=== PATIENT | female | born 1960 ===

== ENCOUNTER 2018-01-12 23:14 | Observation (INO) | payer BC ==
[2018-01-13] MEDS ORDERED: Sodium Chloride 0.9% 1,000 ML IV STA ×3 (00:01→06:25)
[2018-01-13 00:18] LABS: BASO # 0.1 K/uL (0.0-0.2); BASO % 0.5 % (0.0-2.0); EOS # 0.1 K/uL (0.0-0.7); EOS % 1.2 % (0.0-4.0); HEMOGLOBIN 14.3 g/dL (12.0-16.0); LYMPH % 38.3 % (20.0-40.0); MEAN CELL VOLUME 88.4 fl (81.0-99.0); MEAN CORPUSCULAR HEMOGLOBIN 30.5 pg (27.0-31.0); MEAN CORPUSCULAR HGB CONC 34.5 g/dL (33.0-37.0); MEAN PLATELET VOLUME 7.4 fl (7.2-11.7); MONO # 0.4 K/uL (0.0-0.8); MONO % 4.3 % (0.0-10.0); NEUT # 5.8 K/uL (1.8-7.0); NEUT % 55.7 % (50.0-75.0); NRBC % 0.1 % (0.0-0.0); RBC 4.68 Mil/uL (3.80-5.20); RED CELL DISTRIBUTION WIDTH 13.1 % (11.5-14.5); WHITE BLOOD COUNT 10.4 K/uL (4.8-10.8)
[2018-01-13 00:27] LABS: ALB/GLOB RATIO 1.2 (1.0-2.1); ALBUMIN 4.6 g/dL (3.5-5.0); ALT/SGPT 21 U/L (9-52); AST/SGOT 50 U/L (14-36); BLOOD UREA NITROGEN 15 mg/dl (7-17); CALCIUM 9.1 mg/dL (8.4-10.2); GFR AFRICAN-AMERICAN > 60; GFR NON-AFRICAN AMERICAN > 60; LIPASE 106 U/L (23-300)
--- NOTE | 2018-01-13 01:59 | ED PDOC ---
HPI: Abdomen Time Seen by Provider: 01/12/18 23:43 Chief Complaint (Nursing): GI Problem Chief Complaint (Provider): Vomiting and Dizziness History Per: Patient History/Exam Limitations: no limitations Onset/Duration Of Symptoms: Hrs (2pm), Worse Since (dizziness ) Associated Symptoms: Vomiting (blood). denies: Fever Additional Complaint(s): Julianne Bray, a 57 y/o female presents to the ED complaining of vomiting and dizziness. Reports of nausea and had one episode of vomiting around 2pm with small amounts of blood. Also had abdominal cramps and dizziness afterwards. She felt worse with movement and felt like the room was spinning. She took medication, but does not remember the name. Denies fever, cough, or shortness of breath. PMD: Provider RAZ Past Medical History Reviewed: Historical Data, Nursing Documentation, Vital Signs Vital Signs: Last Vital Signs Temp 98.3 F 01/13/18 15:40 Pulse 68 01/13/18 15:40 Resp 20 01/13/18 15:40 BP 147/75 01/13/18 15:40 Pulse Ox 100 01/13/18 16:32 - Medical History PMH: No Chronic Diseases - Surgical History Surgical History: No Surg Hx - Family History Family History: States: Unknown Family Hx - Social History Current smoker - smoking cessation education provided: No Alcohol: None Drugs: Denies - Home Medications Home Medications: Ambulatory Orders Medication Instructions Recorded Cyanocobalamin [Vitamin B12] 500 mcg PO DAILY 01/13/18 Ibuprofen [Motrin Tab] 600 mg PO Q8H PRN 01/13/18 Omeprazole [Omeprazole] 20 mg PO DAILY 01/13/18 Promethazine/Codeine 5 ml PO Q4H PRN 01/13/18 [Phenergan/Codeine Oral Syrup] - Allergies Allergies/Adverse Reactions: Allergies Allergy/AdvReac Type Severity Reaction Status Date / Time No Known Allergies Allergy Verified 01/12/18 23:18 Review of Systems ROS Statement: Except As Marked, All Systems Reviewed And Found Negative Constitutional: Negative for: Fever Respiratory: Negative for: Cough, Shortness of Breath Gastrointestinal: Positive for: Nausea, Vomiting (small amounts of blood), Abdominal Pain Neurological: Positive for: Dizziness Physical Exam - Reviewed Nursing Documentation Reviewed: Yes Vital Signs Reviewed: Yes - Physical Exam Appears: Positive for: Non-toxic, No Acute Distress Head Exam: Positive for: ATRAUMATIC, NORMAL INSPECTION, NORMOCEPHALIC Skin: Positive for: Warm, Dry, Pallor Eye Exam: Positive for: EOMI, Normal appearance, PERRL ENT: Positive for: Normal ENT Inspection Neck: Positive for: Normal, Painless ROM, Supple. Negative for: Decreased ROM Cardiovascular/Chest: Positive for: Tachycardia Respiratory: Positive for: Normal Breath Sounds. Negative for: Accessory Muscle Use, Wheezing, Respiratory Distress Gastrointestinal/Abdominal: Positive for: Normal Exam, Bowel Sounds, Soft. Negative for: Tenderness Back: Positive for: Normal Inspection. Negative for: L CVA Tenderness, R CVA Tenderness Extremity: Positive for: Normal ROM. Negative for: Tenderness, Pedal Edema, Deformity Neurologic/Psych: Positive for: Alert, Oriented (x3), Gait - Laboratory Results Result Diagrams: 01/13/18 00:15 01/13/18 00:15 - ECG O2 Sat by Pulse Oximetry: 100 (RA) Pulse Ox Interpretation: Normal Medical Decision Making Medical Decision Making: Time: 23:29 Initial Impression: 57 y/o female with vertiginous dizziness and developed diarrhea in the ED. Initial Plan: --EKG --CMP --Lipase --ED Urine dipstick --CBC --Antivert 25mg --Bentyl 20mg --Normal Saline 1000 mls/hr --Zofran 4mg --Influenza A B --Reevaluation Persistent dizziness after two dosages of Meclizine. Patient was given IV Benadryl and CT of head. Patient to be signed out to Dr. Perkins pending labs and reevaluation. Documented by Turner Marin acting as a scribe for Srinivasan Del Toro MD. All medical record entries made by the Scribe were at my direction and personally dictated by me. I have reviewed the chart and agree that the record accurately reflects my personal performance of the history, physical exam, medical decision making, and the department course for this patient. I have also personally directed, reviewed, and agree with the discharge instructions and disposition. Disposition - Clinical Impression Clinical Impression: Vertigo, Gastroenteritis - Disposition Disposition: Transfer of Care Disposition Time: 07:00 Condition: FAIR Patient Signed Over To: Malcom Perkins
[2018-01-13 02:12] LABS: URINE BACTERIA RARE (<OCC); URINE BILIRUBIN NEGATIVE (NEGATIVE); URINE BLOOD SMALL (NEGATIVE); URINE CLARITY CLEAR (Clear); URINE COLOR STRAW (YELLOW); URINE GLUCOSE (UA) >=500 mg/dL (Normal); URINE LEUKOCYTE ESTERASE NEG Leu/uL (Negative); URINE NITRATE NEGATIVE (NEGATIVE); URINE PROTEIN NEGATIVE (NEGATIVE); URINE UROBILINOGEN 0.2-1.0 mg/dL (0.2-1.0)
[2018-01-13] MEDS ORDERED: DiphenhydrAMINE 50 mg/ml Inj IV STA (06:20)
[2018-01-13] MEDS ORDERED: DiphenhydrAMINE 50 mg/ml Inj ONE (06:30)
--- NOTE | 2018-01-13 08:13 | CT ---
PROCEDURE: CT HEAD WITHOUT CONTRAST. HISTORY: intractable dizziness COMPARISON: None available. TECHNIQUE: Axial computed tomography images were obtained through the head/brain without intravenous contrast. Radiation dose: Total exam DLP = 732.54 mGy-cm. This CT exam was performed using one or more of the following dose reduction techniques: Automated exposure control, adjustment of the mA and/or kV according to patient size, and/or use of iterative reconstruction technique. FINDINGS: HEMORRHAGE: No intracranial hemorrhage. BRAIN: Franklin-white matter differentiation is preserved. There is no mass, mass effect or abnormal extra-axial fluid collection. VENTRICLES: The ventricles are normal in size, shape and configuration. There is asymmetry in the size of the lateral ventricles, left larger than right, an anatomic variant. CALVARIUM: The skull base and calvarium are normal. PARANASAL SINUSES: Predominantly clear. MASTOID AIR CELLS: Predominantly clear. OTHER FINDINGS: None. IMPRESSION: No acute intracranial abnormality.
--- NOTE | 2018-01-13 12:28 | ED PDOC ---
- Laboratory Results Result Diagrams: 01/13/18 00:15 01/13/18 00:15 - ECG O2 Sat by Pulse Oximetry: 99 Disposition - Clinical Impression Clinical Impression: Gastroenteritis, Vertigo - POA Present On Arrival: None - Disposition Disposition: Hospitalized as Observation Patient Disposition Time: 12:27 Condition: FAIR Prescriptions: Dicyclomine [Bentyl] 20 mg PO Q12 PRN #20 tab PRN Reason: diarrhea/abdominal pain Meclizine [Antivert] 25 mg PO Q6 PRN #12 tab PRN Reason: Dizziness Ondansetron ODT [Zofran ODT] 4 mg PO Q6H PRN #16 odt PRN Reason: Nausea/Vomiting Instructions: Vertigo (a Type of Dizziness), Viral Gastroenteritis Forms: [facility] ([place] Citizen) Print Language: DANISH
--- NOTE | 2018-01-13 22:56 | CARD ---
APPROVED REPORT EKG Measurement Heart [id number] <Conclusion> Normal sinus rhythm Normal ECG
[2018-01-14 00:58] VITALS: RESP 18
[2018-01-14 08:01] VITALS: BP 106/65; PULSE 61; TEMP 97.1; O2SAT 99
[2018-01-14 08:37] LABS: BASO % 0.6 % (0.0-2.0); EOS # 0.1 K/uL (0.0-0.7); EOS % 1.9 % (0.0-4.0); HEMOGLOBIN 12.9 g/dL (12.0-16.0); LYMPH # 3.2 K/uL (1.0-4.3); LYMPH % 49.3 % (20.0-40.0); MEAN CELL VOLUME 89.5 fl (81.0-99.0); MEAN CORPUSCULAR HEMOGLOBIN 30.5 pg (27.0-31.0); MEAN CORPUSCULAR HGB CONC 34.1 g/dL (33.0-37.0); MEAN PLATELET VOLUME 7.5 fl (7.2-11.7); MONO # 0.4 K/uL (0.0-0.8); MONO % 6.2 % (0.0-10.0); NEUT # 2.7 K/uL (1.8-7.0); NRBC % 0.1 % (0.0-0.0); RBC 4.22 Mil/uL (3.80-5.20); RED CELL DISTRIBUTION WIDTH 13.1 % (11.5-14.5); WHITE BLOOD COUNT 6.5 K/uL (4.8-10.8)
[2018-01-14 08:43] LABS: ALB/GLOB RATIO 1.2 (1.0-2.1); ALBUMIN 3.5 g/dL (3.5-5.0); ALT/SGPT 30 U/L (9-52); AST/SGOT 23 U/L (14-36); BLOOD UREA NITROGEN 9 mg/dl (7-17); CALCIUM 8.9 mg/dL (8.4-10.2); GFR AFRICAN-AMERICAN > 60; GFR NON-AFRICAN AMERICAN > 60; HDL CHOLESTEROL 28 MG/DL (30-70)
[2018-01-14 08:44] LABS: LDL CHOLESTEROL 157 mg/dL (0-129)
--- NOTE | 2018-01-14 10:11 | CP.PCM.CON ---
History of Present Illness - History of Present Illness History of Present Illness: 57 yr old woman who started to have vomiting and diarrhea yesterday after eating some [place] food, prepared at home. She had some mild, self remitting dizziness that has since resolved. THere was no weakness, no aphasia, no dysarthria, no headache, and she is doing well today. She says that she has no history of stroke, cardiac disease, dm, or hypertension. PMH/PSH: non contributory, no surgeries. Fh/SH: no smoking, no tobacco, has 2 children. All: nkda. on exam: normal neurological exam no aphasia, no dysmetria, cranial nerves intact. Past Patient History - Past Social History Alcohol: None Drugs: Denies - CARDIAC Hx Cardiac Disorders: No - PULMONARY Hx Respiratory Disorders: No - NEUROLOGICAL Hx Neurological Disorder: No - HEENT Hx HEENT Problems: No - RENAL Hx Chronic Kidney Disease: No - ENDOCRINE/METABOLIC Hx Endocrine Disorders: No - HEMATOLOGICAL/ONCOLOGICAL Hx Blood Disorders: No - INTEGUMENTARY Hx Dermatological Problems: No - MUSCULOSKELETAL/RHEUMATOLOGICAL Hx Musculoskeletal Disorders: No Hx Falls: No - GASTROINTESTINAL Hx Gastroesophageal Reflux: Yes - GENITOURINARY/GYNECOLOGICAL Hx Genitourinary Disorders: No - PSYCHIATRIC Hx Psychophysiologic Disorder: No Hx Substance Use: No Meds Allergies/Adverse Reactions: Allergies Allergy/AdvReac Type Severity Reaction Status Date / Time No Known Allergies Allergy Verified 01/12/18 23:18 - Medications Medications: Current Medications Meclizine HCl (Antivert) 25 mg PO TID [facility] Last Admin: 01/14/18 09:23 Dose: 25 mg Ondansetron HCl (Zofran Inj) 4 mg IVP Q4 PRN PRN Reason: Nausea/Vomiting Pantoprazole Sodium (Protonix Inj) 40 mg IVP DAILY [facility] Last Admin: 01/14/18 09:23 Dose: 40 mg Results - Vital Signs Recent Vital Signs: Last Vital Signs Temp 97.1 F L 01/14/18 08:01 Pulse 61 01/14/18 08:01 Resp 18 01/14/18 08:01 BP 106/65 01/14/18 08:01 Pulse Ox 99 01/14/18 08:01 - Labs Result Diagrams: 01/14/18 07:09 01/14/18 07:09 Labs: Laboratory Results - last 24 hr 01/14/18 01/14/18 07:09 07:09 WBC 6.5 RBC 4.22 Hgb 12.9 Hct 37.7 MCV 89.5 MCH 30.5 MCHC 34.1 RDW 13.1 Plt Count 269 MPV 7.5 Neut % (Auto) 42.0 L Lymph % (Auto) 49.3 H Dickinson % (Auto) 6.2 Eos % (Auto) 1.9 Baso % (Auto) 0.6 Neut # (Auto) 2.7 Lymph # (Auto) 3.2 Dickinson # (Auto) 0.4 Eos # (Auto) 0.1 Baso # (Auto) 0.0 Sodium 145 Potassium 3.7 Chloride 107 Carbon Dioxide 27 Anion Gap 15 BUN 9 Creatinine 0.8 Est GFR ( Amer) > 60 Est GFR (Non-Af Amer) > 60 Random Glucose 94 Calcium 8.9 Total Bilirubin 0.6 AST 23 ALT 30 Alkaline Phosphatase 55 Total Protein 6.4 Albumin 3.5 D Globulin 2.9 Albumin/Globulin Ratio 1.2 Triglycerides 206 H Cholesterol 226 H LDL Cholesterol Direct 157 H HDL Cholesterol 28 L Thyroxine (T4) 8.40 TSH 3rd Generation 1.32 Assessment & Plan - Assessment and Plan (Free Text) Assessment: 57 yr old woman with most likley underlying gastritis, who has a normal neurological exam. No further workup required.
--- NOTE | 2018-01-14 13:35 | CP.PCM.HP ---
History of Present Illness - History of Present Illness History of Present Illness: CC: Abdominal pain/vomiting. 57 y/o F, No chronic PMHx, brought to ER [facility], [place] due to intermittent abdominal pain RUQ, epigastric, mild intensity 3:10 associated to nausea and one episode of vomiting with small amount of blood about 2 pm on day [employer], Pt with no relief came to hospital for evaluation and Tx. Worsening symptoms: Cramps and dizziness after episode. As per PT, he had some home made [place] food day [employer] and after she start having nausea/vomiting. Aggravated factor: Food. Pt denied: Fever, chills, diarrhea, weakness, headache, CP, palpitations, SOB, urinary symptoms, sick contact, recent travel out of [place]. Head CT: No acute intracranial abnormality. EKG: Normal sinus rhythm Present on Admission - Present on Admission Any Indicators Present on Admission: No Review of Systems - Constitutional Constitutional: Other (negative) - EENT Eyes: Other (negative) Ears: Other (negative) Nose/Mouth/Throat: Other (negative) - Cardiovascular Cardiovascular: Other (negative) - Respiratory Respiratory: Other (negative) - Gastrointestinal Gastrointestinal: Abdominal Pain, Nausea, Vomiting - Genitourinary Genitourinary: Other (negative) - Musculoskeletal Musculoskeletal: Other (negative) - Integumentary Integumentary: Other (negative) - Neurological Neurological: Vertigo - Psychiatric Psychiatric: Other (negative) - Endocrine Endocrine: Other (negative) - Hematologic/Lymphatic Hematologic: Other (negative) Past Patient History - Past Medical History & Family History Pertinent Family History: Unknown - Past Social History Smoking Status: Never Smoked Alcohol: None Drugs: Denies Home Situation {Lives}: With Family - CARDIAC Hx Cardiac Disorders: No - PULMONARY Hx Respiratory Disorders: No - NEUROLOGICAL Hx Neurological Disorder: No - HEENT Hx HEENT Problems: No - RENAL Hx Chronic Kidney Disease: No - ENDOCRINE/METABOLIC Hx Endocrine Disorders: No - HEMATOLOGICAL/ONCOLOGICAL Hx Blood Disorders: No - INTEGUMENTARY Hx Dermatological Problems: No - MUSCULOSKELETAL/RHEUMATOLOGICAL Hx Musculoskeletal Disorders: No Hx Falls: No - GASTROINTESTINAL Hx Gastrointestinal Disorders: Yes Hx Gastroesophageal Reflux: Yes - GENITOURINARY/GYNECOLOGICAL Hx Genitourinary Disorders: No - PSYCHIATRIC Hx Psychophysiologic Disorder: No Hx Substance Use: No - ANESTHESIA Hx Anesthesia: No Meds Allergies/Adverse Reactions: Allergies Allergy/AdvReac Type Severity Reaction Status Date / Time No Known Allergies Allergy Verified 01/12/18 23:18 Physical Exam - Constitutional Appears: No Acute Distress - Head Exam Head Exam: NORMAL INSPECTION - Eye Exam Eye Exam: PERRL - ENT Exam ENT Exam: Normal Exam - Neck Exam Neck exam: Positive for: Normal Inspection - Respiratory Exam Respiratory Exam: NORMAL BREATHING PATTERN - Cardiovascular Exam Cardiovascular Exam: REGULAR RHYTHM - GI/Abdominal Exam GI & Abdominal Exam: Normal Bowel Sounds, Soft. absent: Distended, Tenderness - Extremities Exam Extremities exam: Positive for: normal inspection - Back Exam Back exam: NORMAL INSPECTION - Neurological Exam Neurological exam: Alert, Oriented x3 - Psychiatric Exam Psychiatric exam: Normal Mood - Skin Skin Exam: Warm Results - Vital Signs Recent Vital Signs: Last Vital Signs Temp 97.1 F L 01/14/18 08:01 Pulse 61 01/14/18 08:01 Resp 18 01/14/18 08:01 BP 106/65 01/14/18 08:01 Pulse Ox 99 01/14/18 08:01 reviewed J.P. - Labs Result Diagrams: 01/14/18 07:09 01/14/18 07:09 Labs: Laboratory Results - last 24 hr 01/14/18 01/14/18 07:09 07:09 WBC 6.5 RBC 4.22 Hgb 12.9 Hct 37.7 MCV 89.5 MCH 30.5 MCHC 34.1 RDW 13.1 Plt Count 269 MPV 7.5 Neut % (Auto) 42.0 L Lymph % (Auto) 49.3 H [place] % (Auto) 6.2 Eos % (Auto) 1.9 Baso % (Auto) 0.6 Neut # (Auto) 2.7 Lymph # (Auto) 3.2 [place] # (Auto) 0.4 Eos # (Auto) 0.1 Baso # (Auto) 0.0 Sodium 145 Potassium 3.7 Chloride 107 Carbon Dioxide 27 Anion Gap 15 BUN 9 Creatinine 0.8 Est GFR ( Amer) > 60 Est GFR (Non-Af Amer) > 60 Random Glucose 94 Calcium 8.9 Total Bilirubin 0.6 AST 23 ALT 30 Alkaline Phosphatase 55 Total Protein 6.4 Albumin 3.5 D Globulin 2.9 Albumin/Globulin Ratio 1.2 Triglycerides 206 H Cholesterol 226 H LDL Cholesterol Direct 157 H HDL Cholesterol 28 L Thyroxine (T4) 8.40 TSH 3rd Generation 1.32 reviewed J.P. - EKG Data EKG comments: reviewed J.P. - Imaging and Cardiology CT scan - head Status: Report reviewed by me (Ros) Assessment & Plan (1) Gastroenteritis Status: Acute Priority: High (2) Vertigo Status: Acute Priority: Medium - Assessment and Plan (Free Text) Plan: Pt on Meclizine, Pepcid, IV fluids, Pt was seen by Neurology process improvement consultant with impression of normal neurological examination. Currently, Pt is asymptomatic, medical condition improved and is stable to be discharged home, f/u with instruction medications sheet, to f/u with PMD in a week. - Date & Time Date: 01/14/18 Time: 10:30
--- NOTE | 2018-01-15 11:22 | CP.PCM.DIS ---
Provider - Provider Date of Admission: 01/13/18 12:25 Attending physician: Thony Solomon MD Diagnosis - Discharge Diagnosis (1) Gastroenteritis Status: Acute Priority: High (2) Vertigo Status: Acute Priority: Medium Hospital Course - Lab Results Lab Results: Most Recent Lab Values WBC 6.5 K/uL (4.8-10.8) 01/14/18 07:09 RBC 4.22 Mil/uL (3.80-5.20) 01/14/18 07:09 Hgb 12.9 g/dL (12.0-16.0) 01/14/18 07:09 Hct 37.7 % (34.0-47.0) 01/14/18 07:09 MCV 89.5 fl (81.0-99.0) 01/14/18 07:09 MCH 30.5 pg (27.0-31.0) 01/14/18 07:09 MCHC 34.1 g/dL (33.0-37.0) 01/14/18 07:09 RDW 13.1 % (11.5-14.5) 01/14/18 07:09 Plt Count 269 K/uL (130-400) 01/14/18 07:09 MPV 7.5 fl (7.2-11.7) 01/14/18 07:09 Neut % (Auto) 42.0 % (50.0-75.0) L 01/14/18 07:09 Lymph % (Auto) 49.3 % (20.0-40.0) H 01/14/18 07:09 Toole % (Auto) 6.2 % (0.0-10.0) 01/14/18 07:09 Eos % (Auto) 1.9 % (0.0-4.0) 01/14/18 07:09 Baso % (Auto) 0.6 % (0.0-2.0) 01/14/18 07:09 Neut # (Auto) 2.7 K/uL (1.8-7.0) 01/14/18 07:09 Lymph # (Auto) 3.2 K/uL (1.0-4.3) 01/14/18 07:09 Toole # (Auto) 0.4 K/uL (0.0-0.8) 01/14/18 07:09 Eos # (Auto) 0.1 K/uL (0.0-0.7) 01/14/18 07:09 Baso # (Auto) 0.0 K/uL (0.0-0.2) 01/14/18 07:09 Sodium 145 mmol/l (132-148) 01/14/18 07:09 Potassium 3.7 MMOL/L (3.6-5.0) 01/14/18 07:09 Chloride 107 mmol/L (98-107) 01/14/18 07:09 Carbon Dioxide 27 mmol/L (22-30) 01/14/18 07:09 Anion Gap 15 (10-20) 01/14/18 07:09 BUN 9 mg/dl (7-17) 01/14/18 07:09 Creatinine 0.8 mg/dl (0.7-1.2) 01/14/18 07:09 Est GFR ( Amer) > 60 01/14/18 07:09 Est GFR (Non-Af Amer) > 60 01/14/18 07:09 Random Glucose 94 mg/dL (65-105) 01/14/18 07:09 Calcium 8.9 mg/dL (8.4-10.2) 01/14/18 07:09 Total Bilirubin 0.6 mg/dl (0.2-1.3) 01/14/18 07:09 AST 23 U/L (14-36) 01/14/18 07:09 ALT 30 U/L (9-52) 01/14/18 07:09 Alkaline Phosphatase 55 U/L (38-126) 01/14/18 07:09 Total Protein 6.4 G/DL (6.3-8.2) 01/14/18 07:09 Albumin 3.5 g/dL (3.5-5.0) D 01/14/18 07:09 Globulin 2.9 gm/dL (2.2-3.9) 01/14/18 07:09 Albumin/Globulin Ratio 1.2 (1.0-2.1) 01/14/18 07:09 Triglycerides 206 mg/DL (0-149) H 01/14/18 07:09 Cholesterol 226 mg/dL (0-199) H 01/14/18 07:09 LDL Cholesterol Direct 157 mg/dL (0-129) H 01/14/18 07:09 HDL Cholesterol 28 MG/DL (30-70) L 01/14/18 07:09 Lipase 106 U/L (23-300) 01/13/18 00:15 Thyroxine (T4) 8.40 ug/dl (5.5-11.0) 01/14/18 07:09 TSH 3rd Generation 1.32 mIU/ML (0.46-4.68) 01/14/18 07:09 Urine Color Straw (YELLOW) 01/13/18 01:57 Urine Clarity Clear (Clear) 01/13/18 01:57 Urine pH 8.0 (5.0-8.0) 01/13/18 01:57 Ur Specific Rayle 1.008 (1.003-1.030) 01/13/18 01:57 Urine Protein Negative mg/dL (NEGATIVE) 01/13/18 01:57 Urine Glucose (UA) >=500 mg/dL (Normal) 01/13/18 01:57 Urine Ketones Trace mg/dL (NEGATIVE) 01/13/18 01:57 Urine Blood Small (NEGATIVE) 01/13/18 01:57 Urine Nitrate Negative (NEGATIVE) 01/13/18 01:57 Urine Bilirubin Negative (NEGATIVE) 01/13/18 01:57 Urine Urobilinogen 0.2-1.0 mg/dL (0.2-1.0) 01/13/18 01:57 Ur Leukocyte Esterase Neg Romana/uL (Negative) 01/13/18 01:57 Urine RBC (Auto) 3 /hpf (0-3) 01/13/18 01:57 Urine Microscopic WBC 1 /hpf (0-5) 01/13/18 01:57 Urine Bacteria Rare (<OCC) 01/13/18 01:57 Influenza Typ A,B (EIA) Negative for flu a/b (NEGATIVE) 01/13/18 01:57 Discharge Exam - Head Exam Head Exam: NORMAL INSPECTION Discharge Plan - Follow Up Plan Condition: FAIR Disposition: HOME/ ROUTINE Instructions: Vertigo (a Type of Dizziness)
== END 2018-01-14 14:30 | disposition home or self-care (01) ==
LOC: H.ER 23:14 → H.ERHOLD 01-13 12:25 → H.MEDSURG1 01-13 15:23
PROVIDERS: ADMIT Internal Medicine Pulmonary Disease; ATTEND Internal Medicine Pulmonary Disease
DX: K52.9 Noninfective gastroenteritis and colitis, unspecified (principal); R42 Dizziness and giddiness; K21.9 Gastro-esophageal reflux disease without esophagitis
CPT/HCPCS: 36415; 70450; 80053; 80061; 81003; 83690; 84436; 84443; 85025; 87804; 93005; 99285; C9113; G0378; J1200; J2405; J7040